=== PATIENT | female | born 1980 | race Two or more races ===

== ENCOUNTER 2023-12-12 14:50 | Outpatient (CLI) | payer BC, SELFPAY ==
--- NOTE | 2023-12-12 14:55 | MR_ITS ---
FINAL REPORT TECHNIQUE: Multiplanar MR, without and with gadolinium enhancement CLINICAL HISTORY: BACK PAIN COMPARISON: None FINDINGS: Sagittal images show normal vertebral height. Alignment is normal. Marrow signal pattern is unremarkable. Postcontrast enhanced images show no evidence of a mass or abnormal enhancement. Sagittal images show a central disc extrusion at the T12-L1 level which is not imaged in the axial plane. L1-2: No evidence of central canal stenosis or neural foraminal narrowing. L2-3: A tiny central disc protrusion is present, without evidence of central canal stenosis or neural foraminal narrowing. L3-4: No evidence of central canal stenosis or neural foraminal narrowing. L4-5: No evidence of central canal stenosis or neural foraminal narrowing. L5-S1: There is a tiny left paracentral disc protrusion, with mild facet arthropathy. IMPRESSION: Minimal lumbar degenerative disc disease. Postcontrast enhancement no evidence of mass or abnormal enhancement is identified. There is a central disc extrusion which is only imaged on the sagittal plane at the T12-L1 level. Would consider further axial imaging for evaluation. Reviewed, Interpreted and Dictated by Bryanna Lowe MD Transcribed by Mariela Wong Authenticated and [facility]
[2023-12-12] MEDS: SODIUM CHLORIDE 0.9% 10ML SYR (RAD ONLY) 10 ML IV (15:47)
[2023-12-12] MEDS: GADOTERIDOL INJ 20ML SYRINGE 17 ML IV (15:47)
[2023-12-12] MEDS: 0.9 % SODIUM CHLORIDE 50 ML VIAL 15 ML IV (15:47)
== END 2023-12-12 23:59 | disposition home or self-care (01) ==
LOC: RAD 14:51
PROVIDERS: PCP Nurse Practitioner Family; Visit Provider Nurse Practitioner Family
DX: R94.131 Abnormal electromyogram [EMG] (principal)
CPT/HCPCS: 72158; A9576

== ENCOUNTER 2024-02-08 17:08 | Outpatient (CLI) | payer BC, SELFPAY ==
--- NOTE | 2024-02-08 17:10 | MR_ITS ---
FINAL REPORT CLINICAL HISTORY: CERVICALGIA. right sided neck and head spasms. bilateral arm pain, numbness and tingling COMPARISON: None FINDINGS: Multi planar MR imaging was obtained of the cervical spine. There is abnormal decreased signal throughout the cervical discs. The vertebrae are of normal height. There is no malalignment. The cervical cord demonstrates normal signal and configuration. There is diffuse mild thickening of the posterior longitudinal ligament. C2-C3: There is no evidence of significant disc bulge or protrusion. There is no significant facet hypertrophy. C3-C4: There is no evidence of significant disc bulge or protrusion. There is no significant facet hypertrophy. C4-C5: There is no evidence of significant disc bulge or protrusion. There is no significant facet hypertrophy. C5-C6: There is no evidence of significant disc bulge or protrusion. There is no significant facet hypertrophy. C6-C7: There is no evidence of significant disc bulge or protrusion. There is no significant facet hypertrophy. C7-T1: There is no evidence of significant disc bulge or protrusion. There is no significant facet hypertrophy. IMPRESSION: Diffuse mild thickening of the posterior longitudinal ligament. No discrete disc herniation or protrusion is identified. Reviewed, Interpreted and Dictated by Blayne Sterling MD Transcribed by Mariela Wong Authenticated and [facility]
== END 2024-02-08 23:59 | disposition home or self-care (01) ==
LOC: RAD 17:08
PROVIDERS: PCP Nurse Practitioner Family; Visit Provider Physician Assistant
DX: M54.2 Cervicalgia (principal)
CPT/HCPCS: 72141

== ENCOUNTER 2024-05-01 13:05 | Outpatient (POV) | payer BC, SELFPAY ==
--- NOTE | 2024-05-01 13:25 | A.OFFVIS_ITS ---
HPI Data of Consult Patient: new to practice Consult date: 05/01/24 Requesting Physician: Marleny Arrington APRN Primary Care Provider: Chrystal Ortiz APRN Consult Narrative Reason for consult: Low back pain, bilateral hip pain, upper thigh pain, neck pain, left should History of present illness: Ms. Anand Guerrero is a 43 year old female who presents today as a new patient. She is a referral from [facility] office. Today she rates her pain a 7 out of 10. Patient states she has multiple pain areas including her neck, left shoulder, low back, bilateral hips and upper thighs. Patient states that this is been going on for years starting around October 2019. She does state that the worst pain is more so her neck and low back. Patient states that overall her pain is constant and she has a burning sensation all over with chronic aching. She does state the pain interferes with her ability perform activities of daily living such as cooking and cleaning. Patient has tried oral medications, heat and ice and topicals with minimal relief. Patient has tried chiropractor therapy in the past and states this has helped but it has been a while since she has been to these appointments and she has also tried physical therapy that made no change. Patient states in general a good day is a 6 or 7 out of 10 with all her medications. She states other days when it is really bad she cannot do anything. Patient states that the pain is worse with increased activity or prolonged positioning. She does have to move around due to the pain. Patient has continued at home exercising and stretching for longer than 12 weeks with no additional changes.Patient is not on any scheduled medications. Her Frantz has been reviewed and is appropriate. CC: Marleny Arrington APRN [facility] Disclaimer: The information contained in this section may have been updated after the patient was seen, as this information can be updated by other users. Medical History (Updated 05/01/24 @ 14:29 by Marleny Arrington APRN) GERD (gastroesophageal reflux disease) Alopecia Anxiety Asthma Diabetes Depression Sleep disorder Fibromyalgia PCOS (polycystic ovarian syndrome) Acanthosis nigricans Metabolic syndrome Raynauds disease Family History (Updated 05/01/24 @ 13:55 by Sanjuanita Padilla RN) Other Unknown family medical history Social History (Updated 05/01/24 @ 13:58 by Sanjuanita E Works, RN) Smoking Status: Never smoker alcohol intake: never current occupational status: unemployed Travel in the last 8 weeks: None Review of Systems Review of Systems Review of systems:: pertinent systems reviewed and negative unless documented below Review of systems (narrative): Review of Systems: General: No recent weight changes, no fever, no sleep disturbances Respiratory: No cough, no shortness of air, no recurring pulmonary infections Cardiovascular/peripheral vascular: No chest pain, no palpitations, no edema, no shortness of breath Gastrointestinal: No new onset incontinence, normal bowel movements reported Genitourinary: No new onset incontinence Musculoskeletal: Neck pain, left shoulder pain, low back pain, bilateral hip pain, upper thigh pain Psychiatric: [Normal mood/affect] Neurological: [Denies weakness in extremities], [denies balance issues] Meds Home Medications and Allergies Home Medications ?Medication ?Instructions ?Recorded ?Confirmed ?Type amitriptyline 10 mg tablet 2.5 mg PO BID 05/01/24 05/01/24 History baclofen 10 mg tablet 10 mg PO DAILY 05/01/24 05/01/24 History buspirone 15 mg tablet 10 mg PO TID MOOD 05/01/24 05/01/24 History desvenlafaxine succinate 100 mg 100 mg PO DAILY 05/01/24 05/01/24 History tablet,extended release 24 hr diclofenac sodium 75 mg 75 mg PO BID Pain 05/01/24 05/01/24 History tablet,delayed release duloxetine 30 mg capsule,delayed 30 mg PO DAILY MOOD 05/01/24 05/01/24 History release famotidine 20 mg tablet (Pepcid) 20 mg PO BID 05/01/24 05/01/24 History fexofenadine 180 mg tablet 180 mg PO DAILY ALLERGIES 05/01/24 05/01/24 History (Allergy Relief (fexofenadine)) magnesium 200 mg tablet 200 mg PO DAILY 05/01/24 05/01/24 History metformin 1,000 mg tablet 500 mg PO DAILY Diabetes 05/01/24 05/01/24 History methocarbamol 500 mg tablet 500 mg PO HS 05/01/24 05/01/24 History montelukast 10 mg tablet 10 mg PO DAILY ALLERGIES 05/01/24 05/01/24 History nifedipine 10 mg capsule 10 mg PO TID 05/01/24 05/01/24 History semaglutide 1 mg/dose (4 mg/3 mL) 1 mg SQ DIRECTED Diabetes 05/01/24 05/01/24 History subcutaneous pen injector (Ozempic) spironolactone 50 mg tablet 50 mg PO BID 05/01/24 05/01/24 History New Prescriptions to Start Prescriptions: Allergies Allergy/AdvReac Type Severity Reaction Status Date / Time No Known Allergies Allergy Verified 05/01/24 14:02 Objective Narrative: Physical Exam: General: Alert and oriented x3, no acute distress, pleasant and cooperative Lungs: Respirations even and unlabored, symmetrical chest expansion Eyes: PERRL Musculoskeletal: Flexion and extension of lumbar [spine] somewhat guarded secondary to pain, [antalgic gait noted] point tenderness along bilateral SIs with positive bilateral Alden's, Easton's, Gaenslen's, compression and distraction exam Neurological: Speech clear, no gross sensory deficit Additional findings Additional findings: FINDINGS: Multi planar MR imaging was obtained of the cervical spine. There is abnormal decreased signal throughout the cervical discs. The vertebrae are of normal height. There is no malalignment. The cervical cord demonstrates normal signal and configuration. There is diffuse mild thickening of the posterior longitudinal ligament. C2-C3: There is no evidence of significant disc bulge or protrusion. There is no significant facet hypertrophy. C3-C4: There is no evidence of significant disc bulge or protrusion. There is no significant facet hypertrophy. C4-C5: There is no evidence of significant disc bulge or protrusion. There is no significant facet hypertrophy. C5-C6: There is no evidence of significant disc bulge or protrusion. There is no significant facet hypertrophy. C6-C7: There is no evidence of significant disc bulge or protrusion. There is no significant facet hypertrophy. C7-T1: There is no evidence of significant disc bulge or protrusion. There is no significant facet hypertrophy. IMPRESSION: Diffuse mild thickening of the posterior longitudinal ligament. No discrete disc herniation or protrusion is identified. Reviewed, Interpreted and Dictated by Blayne Sterling MD Transcribed by Mariela Wong Authenticated and [facility] FINDINGS: Sagittal images show normal vertebral height. Alignment is normal. Marrow signal pattern is unremarkable. Postcontrast enhanced images show no evidence of a mass or abnormal enhancement. Sagittal images show a central disc extrusion at the T12-L1 level which is not imaged in the axial plane. L1-2: No evidence of central canal stenosis or neural foraminal narrowing. L2-3: A tiny central disc protrusion is present, without evidence of central canal stenosis or neural foraminal narrowing. L3-4: No evidence of central canal stenosis or neural foraminal narrowing. L4-5: No evidence of central canal stenosis or neural foraminal narrowing. L5-S1: There is a tiny left paracentral disc protrusion, with mild facet arthropathy. IMPRESSION: Minimal lumbar degenerative disc disease. Postcontrast enhancement no evidence of mass or abnormal enhancement is identified. There is a central disc extrusion which is only imaged on the sagittal plane at the T12-L1 level. Would consider further axial imaging for evaluation. Reviewed, Interpreted and Dictated by Bryanna Lowe MD Transcribed by Mariela Wong Authenticated and [facility] Assessment and Plan *Assessment and plan (1) Bilateral sacroiliitis: Status: Acute Category: Medical Code(s): M46.1 - Sacroiliitis, not elsewhere classified (2) Bilateral hip pain: Status: Acute Category: Medical Code(s): M25.551 - Pain in right hip; M25.552 - Pain in left hip (3) Low back pain: Status: Acute Qualifiers: Chronicity: chronic Back pain laterality: bilateral Sciatica presence: with sciatica Sciatica laterality: bilateral sciatica Qualified Code(s): M54.42 - Lumbago with sciatica, left side; M54.41 - Lumbago with sciatica, right side; G89.29 - Other chronic pain Category: Medical Code(s): M54.50 - Low back pain, unspecified (4) Neck pain: Status: Acute Category: Medical Code(s): M54.2 - Cervicalgia (5) Left shoulder pain: Status: Acute Qualifiers: Chronicity: chronic Qualified Code(s): M25.512 - Pain in left shoulder; G89.29 - Other chronic pain Category: Medical Code(s): M25.512 - Pain in left shoulder Plan Patient is experiencing significant pain with limited range of motion of her lumbar spine. Patient did have extreme point tenderness along her bilateral SIs and a positive bilateral Alden's, Easton's, Gaenslen's, compression and distraction exam. I did discuss with the patient that I do believe she would very much benefit from bilateral SI injections. Risk and benefits were discussed with patient and she would like to proceed forward with this plan of care. Patient has tried and failed conservative therapy including continued at home stretching exercise for longer than 12 weeks. This pain has been going on for longer than 3 months. Patient will be ordered a compounded cream. Patient will be scheduled for bilateral SI injections under fluoroscopy. Patient has been instructed to contact the clinic with any concerns before the next appointment. Dr. Arellano has reviewed this note and agrees with this plan of care. This note was dictated using voice recognition software and make contain errors or omissions. All injections are used with Lidocaine or Bupivacaine and Depo Medrol.
[2024-05-01 13:29] VITALS: BP 129/79; PULSE 89; RESP 18; O2SAT 100; BMI 29.0
== END 2024-05-01 23:59 | disposition home or self-care (01) ==
LOC: SC.PAIN 13:06
PROVIDERS: PCP Nurse Practitioner Family; Visit Provider Nurse Practitioner Family
DX: M46.1 Sacroiliitis, not elsewhere classified (principal); M25.551 Pain in right hip; M25.552 Pain in left hip; M54.42 Lumbago with sciatica, left side; M54.41 Lumbago with sciatica, right side; G89.29 Other chronic pain; M54.2 Cervicalgia; M25.512 Pain in left shoulder; Z73.89 Other problems related to life management difficulty; Z79.85 Long-term (current) use of injectable non-insulin antidiabetic drugs
CPT/HCPCS: 99202; G0463